=== PATIENT | male | born 1985 | race Caucasian/White ===

== ENCOUNTER 2018-04-09 10:41 | Emergency (ER) | payer SELFPAY ==
[2018-04-09 10:42] VITALS: BP 123/79; PULSE 87; RESP 14; TEMP 36.8; O2SAT 98; BMI 22.1
--- NOTE | 2018-04-09 10:58 | ED.DCSUM_ITS ---
- ER Visit Summary Date of Service: 04/09/18 Chief Complaint: [Rash] History of Present Illness: The patient is a 32 M [ presents to the emergency department with complaint of a rash that started yesterday evening. 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 Patient describes the rash as pruritic. Patient has a rash on his face and upper extremities as well as his abdomen and on his penis. Patient thinks he got the rash on his penis from touching the area while urinating. Denies recent illness. Patient does not want to file this under workman's comp. He denies any shortness of breath or difficulty breathing.] Physical Examination: [HEENT-PERRLA, EOMI. Cranial nerves II through XII grossly intact. TMs clear. Mucous membranes moist. No adenopathy. Cardiovascular-regular rate and rhythm without murmur or ectopy Lungs-clear to auscultation, chest wall stable without crepitus or subcu emphysema Abdomen-normoactive bowel sounds, soft, nontender, no rebound or rigidity, no peritoneal signs. Skin exam-patient does have an erythematous inflammatory rash around the right eye and right side of his face and nose. Patient also has similar rash on the volar aspect of his forearms as well as his abdomen. Similar type rash noted to the penis as well. Rash is pruritic. Extremities-intact ?4, normal range of motion, normal pulses, atraumatic] Test Results: [None indicated] Emergency Department Course and Treatment: [Patient was treated with prednisone 60 mill grams p.o. as well as Benadryl 25 mill grams p.o.] Treatment Plan: [Patient will be started on prednisone and will be referred to primary care physician for follow-up within next 5-7 days.] Disposition: [Discharged home in stable condition] Impression: [Contact dermatitis] This note was generated with [employer] dictation software. It may contain incorrect words, spelling, and punctuation that were not noted in review of the chart prior to signing ED Disposition - Plan for ED Patient: Chief Complaint: Rash Referrals: Care Physician,No Primary [Primary Care Provider] -
--- NOTE | 2018-04-09 10:58 | ED.DEP ---
ED Disposition - Plan for ED Patient: Chief Complaint: Rash Instructions: ED Dermatitis Contact Prescriptions: predniSONE tablet 20 mg PO BID #14 tab Referrals: Care Physician,No Primary [Primary Care Provider] - Berny Barraza III, MD [STAFF PHYSICIAN] -
[2018-04-09] MEDS: predniSONE 20 MG Tablet 60 MG PO (11:07)
[2018-04-09] MEDS: DiphenhydrAMINE 25 MG Capsule PO (11:07)
[2018-04-09 11:13] VITALS: PULSE 85; RESP 14; O2SAT 99
--- OUTSIDE RECORDS SUMMARY | 2018-07-13 09:53 | XMS RPT_ITS ---
:1985 Author Organization [facility] Care Team Providers Name Role Phone Primay Care Physicia, No Primary Care Unavailable Maris Lopez Attending Unavailable MAYRA SHELDON MD Attending Unavailable PHYSICIAN, NONE Primary Care Unavailable Elli Lorenzo Attending Unavailable No Family Physician given Primary Care Unavailable PROBLEMS PROBLEMS DATE TYPE CONDITION / ATTENDING STATUS SOURCE CODE 05/13/2018 Admitting Unknown / Elli Lorenzo Active [facility] Medical diagnosis UNK(Unknown) E [facility] Repository PROCEDURES PROCEDURES No Procedure Records FoundRESULTS RESULTS BMP Collected: 05/13/2018 Status: F Source: [facility] 7:20 AM [facility] REPOSITORY Order Comment: [place]: M TYPE CODE TESTS RESULT OUT OF RANGE REFERENCE UNITS LAB L500.06489 136-145 MMOL/L Normal NA 142 LAB L500.50215 3.5-5.1 MMOL/L Normal K 4.4 LAB L500.74767 98-107 MMOL/L High CL 111 LAB L500.97111 21-32 MMOL/L Normal CO2 25 LAB L500.70667 5-16 MMOL/L Normal AGAP 6 LAB L500.06873 70-100 MG/DL Normal GLU 95 Result Comment: 70-100- Normal Fasting; 100-125 Impaired Fasting; greater than 126 on more than one result- Diabetes. ADA guidelines. Results may be falsely elevated after the administration of Sulfapyridine. Results may be falsely depressed after the administration of Sulfasalazine. LAB L500.11089 7-26 MG/DL Normal BUN 18 LAB L500.57398 0.670-1.170 MG/DL Normal CREAT 0.884 Result Comment: Patients receiving either N-Acetylcysteine (NAC) or Metamizole prior to venipuncture, may have falsely depressed results. LAB L500.70348 15-24 Normal BUN/CREA 21 LAB L500.65975 8.5-10.1 MG/DL Low CALCIUM TOTAL 8.3 Performed By: #### L500.01187, L500.12017 #### [facility] [place] [address] GFR EST Collected: 05/13/2018 Status: F Source: [facility] 7:20 AM [facility] REPOSITORY Order Comment: [place]: TYPE CODE TESTS RESULT OUT OF RANGE REFERENCE UNITS LAB L500.50894 ML/MIN Normal IF non-AFR Greater than AMER 60 LAB L500.81305 ML/MIN Normal IF Greater than AMER 60 Performed By: #### L500.61587, L500.64194 #### [facility] [address] [place] [address] FLUOROSCOPY IN OR/PAIN Observed: 05/13/2018 Status: F Source: [facility] MGT 6:54 AM [facility] FLUOROSCOPY IN OR/PAIN MGT Ordering Physician: Elli Lorenzo MD 05/13/2018 8:30 AM FLUOROSCOPY FILMS DIGIT LEFT HAND Clinical Statement: Fracture FINDINGS: Six seconds fluoroscopy time was utilized by Dr. Lorenzo. Two C-arm images of the fifth digit left hand were obtained. IMPRESSION: Six seconds fluoroscopy time utilized by Dr. Lorenzo. ---- Electronic Signature on File ---- Signed By: Linda Rascon MD FACR [email or web address] Dictated: 05/13/2018 9:30 AM Signed: 05/13/2018 9:30 AM Reported By: LINDA RASCON M.D. Signed By: LINDA RASCON M.D. XR FINGER 5TH DIGIT Observed: 05/03/2018 Status: F Source: [facility] 3 VIEWS LEFT 3:17 PM [facility] REPOSITORY ORIGINAL XR FINGER 5TH DIGIT 3 VIEWS LEFT CLINICAL STATEMENT: pain. Crush injury. COMPARISON: None FINDINGS: There is an acute angulated fracture of the proximal diaphysis of the proximal phalanx LEFT 5th digit. There is 55 degrees dorsal angulation of the distal fracture fragment. No additional frac tures visualized. There is surrounding soft tissue swelling area IMPRESSION: Angulated fracture of LEFT 5th proximal phalanx as described above. I have personally reviewed the images of this examination and agree with the resident's findings and interpretation. Interpreted By: Mark Le MD Preliminary Report By: Mark Livingston DO Electronically Signed By: Mark Le MD Dictated Date: 05/03/2018 4:04:52 PM Prelim Date: 05/03/2018 4:06:05 PM Sign Date: 05/03/2018 4:19:36 PM DISCHARGE INSTRUCTION Observed: 04/09/2018 Status: F Source: [place] 11:00 AM [facility] REPOSITORY [facility] Medical Records Department [address] [place] [address] Discharge Instruction 04/09/18 1058 MR#: [id number] Acct: [id number] Name: DEA MERCADO Rep #: [id number] : 1985 32 From: Maris Lopez DO PCP: Care Physician, No Primary Status: PRE ER ED Disposition - Plan for ED Patient: Chief Complaint: Rash Instructions: ED Dermatitis Contact Prescriptions: predniSONE tablet 20 mg PO BID #14 tab Referrals: Care Physician,No Primary [Primary Care Provider] - Berny Barraza III, MD [STAFF PHYSICIAN] - What to do if you have Problems For any increased pain, shortness of breath, bleeding, nausea or vomiting, chest pain, or any unexpected problems, contact your Primary Care Provider. Call [facility] ([phone]) or report to the closest Emergency Room. Call 911 if necessary. 04/09/18 1100 <Electronically signed by Maris Lopez DO> Date Remus Ungur DO Cosigner Signature (If Indicated): Date CC: No Primary Care Physician EMERGENCY DEPARTMENT Observed: 04/09/2018 Status: F Source: [place] SUMMARY 10:58 AM [facility] REPOSITORY [facility] Medical Records Department [address] [place] [address] Emergency Department Summary 04/09/18 1055 MR#: [id number] Acct: [id number] Name: DEA MERCADO Rep #: [id number] : 1985 32 From: Maris Lopez DO PCP: Care Physician, No Primary Status: PRE ER - ER Visit Summary Date of Service: 04/09/18 Chief Complaint: [Rash] History of Present Illness: The patient is a 32 M [ presents to the emergency department with complaint of a rash that started yesterday evening. 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 Patient describes the rash as pruritic. Patient has a rash on his face and upper extremities as well as his abdomen and on his penis. Patient thinks he got the rash on his penis from touching the area while urinating. Denies recent illness. Patient does not want to file this under workman's comp. He denies any shortness of breath or difficulty breathing.] Physical Examination: [HEENT-PERRLA, EOMI. Cranial nerves II through XII grossly intact. TMs clear. Mucous membranes moist. No adenopathy. Cardiovascular-regular rate and rhythm without murmur or ectopy Lungs-clear to auscultation, chest wall stable without crepitus or subcu emphysema Abdomen-normoactive bowel sounds, soft, nontender, no rebound or rigidity, no peritoneal signs. Skin exam-patient does have an erythematous inflammatory rash around the right eye and right side of his face and nose. Patient also has similar rash on the volar aspect of his forearms as well as his abdomen. Similar type rash noted to the penis as well. Rash is pruritic. Extremities-intact 4, normal range of motion, normal pulses, atraumatic] Test Results: [None indicated] Emergency Department Course and Treatment: [Patient was treated with prednisone 60 mill grams p.o. as well as Benadryl 25 mill grams p.o.] Treatment Plan: [Patient will be started on prednisone and will be referred to primary care physician for follow-up within next 5-7 days.] Disposition: [Discharged home in stable condition] Impression: [Contact dermatitis] This note was generated with [employer] dictation software. It may contain incorrect words, spelling, and punctuation that were not noted in review of the chart prior to signing ED Disposition - Plan for ED Patient: Chief Complaint: Rash Referrals: Care Physician,No Primary [Primary Care Provider] - What to do if you have Problems For any increased pain, shortness of breath, bleeding, nausea or vomiting, chest pain, or any unexpected problems, contact your Primary Care Provider. Call [facility] ([phone]) or report to the closest Emergency Room. Call 911 if necessary. 04/09/18 1058 <Electronically signed by Maris Lopez DO> Date Maris Lopez DO Cosigner Signature (If Indicated): Date CC: No Primary Care Physician ALLERGIES ALLERGIES DATE TYPE / CODE NAME / CODE REACTION SEVERITY SOURCE 08/20/2015 Drug morphine/F00 Other Unknown [facility] Allergy/4160 [id number]([facility] 07584(SNOMED RM) Repository CT) ENCOUNTERS ENCOUNTERS ADMIT/DISCHARGE ACCOUNT NUMBER ADMITTING ENCOUNTER LOCATION SOURCE CLASS 05/13/2018 [id number] Inpatient [facility] Medical [facility] Repository ng:HMARY 05/03/2018/05/03/19 [id number] Emergency BBuilding:TAYE Swanson [address] [place] [address] Repository 04/09/2018/04/09/20 [id number] Emergency [place] Margarita [address] [place] [address] ding:ED Repository PAYERS PAYERS ENCOUNTER GUARANTOR PAYER SUBSCRIBER SOURCE 05/13/2018 [facility] [id number] [facility] [place], [place] Number: [id number]: [phone] [id number] [phone] (HP) Date:[id number] [address] [place] [address]SR: 05/03/2018 DEA Primary DEA [facility] PERKINSDOB: Insurance:[employer] JAYLENFLOB: [facility] [id number] INSCOPolicy Number: [id number] [facility] [id number] [address] [place] [address] Date:2018-04-26 - [place], [place] [address]Sof: [phone]: () Name:[phone] [place] [address] ()Tel: [phone]: [phone] 04/09/2018 SARITA Primary NOT [id number] Insurance:SELF PAY [place], [place] Number: Effective Repository [phone]: [phone]) Date:2018-04-09 [phone] ()
== END 2018-04-09 11:25 | disposition home or self-care (01) ==
PROVIDERS: Emergency Provider Emergency Medicine
DX: L25.9 Unspecified contact dermatitis, unspecified cause (principal); Z72.0 Tobacco use
CPT/HCPCS: 99283

== ENCOUNTER 2018-11-22 16:25 | Emergency (ER) | payer MEDICAID, SELFPAY ==
[2018-11-22 16:26] VITALS: BP 124/80; PULSE 96; RESP 15; TEMP 36.8; O2SAT 98; BMI 20.2
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
[2018-11-22] MEDS: oxyCODONE 5 MG Tablet PO ×2 (17:52→21:52)
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
[2018-11-22 18:30] VITALS: BP 122/74; PULSE 84; RESP 16; O2SAT 100
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
[2018-11-22] MEDS: HYDROmorphone 0.5 MG/0.5 ML SYRINGE IV (19:44)
[2018-11-22] MEDS: Ondansetron 4 MG/2 ML Vial IV (19:44)
[2018-11-22 19:47] VITALS: BP 146/88; PULSE 76; RESP 18; O2SAT 98
[2018-11-22 20:52] VITALS: BP 123/81; PULSE 66; RESP 18; O2SAT 98
--- NOTE | 2018-11-22 21:23 | ED.DEP ---
ED Disposition - Plan for ED Patient: Instructions: Rib Contusion Prescriptions: Oxycodone HCl/Acetaminophen [Percocet 5/325] 1 tablet PO Q6H PRN PRN 3 Days #12 tablet PRN Reason: Pain Referrals: Zbigniew Mccollum DO [STAFF PHYSICIAN] - Josh Golden MD [NON-STAFF] -
[2018-11-22 21:54] VITALS: BP 143/89; PULSE 62; RESP 17; O2SAT 100
== END 2018-11-22 21:55 | disposition home or self-care (01) ==
PROVIDERS: Emergency Provider Emergency Medicine
DX: S20.212A Contusion of left front wall of thorax, initial encounter (principal); R74.8 Abnormal levels of other serum enzymes; V03.10XA Pedestrian on foot injured in collision with car, pick-up truck or van in traffic accident, initial encounter; Y93.9 Activity, unspecified; Y92.9 Unspecified place or not applicable; Y99.9 Unspecified external cause status; Z72.0 Tobacco use
CPT/HCPCS: 71101; 71275; 85379; 96374; 96375; 99283; Q9967; A4216; J2405

== ENCOUNTER 2019-01-30 02:51 | Emergency (ER) | payer MEDICAID, SELFPAY ==
[2019-01-30 02:52] VITALS: BP 152/105; PULSE 97; RESP 15; TEMP 36.5; O2SAT 99; BMI 22.2
--- NOTE | 2019-01-30 03:57 | ED.RN ---
DR. QUIÑONEZ IN TO SEE PATIENT AT THIS TIME. PATIENT UPSET ABOUT THE TIME IT TOO TO SEE PATIENT AND THE CARE THAT HE WAS GOING TO RECEIVE. PATIENT ADVISED ORDERS WERE PLACED. PATIENT NO LONGER WANTS TO STAY AND WANTS TO GO TO A HOSPITAL THAT WILL TAKE CARE OF HIM. PATIENT AT THIS TIME WALKED OUT UNDER ON FREE WHILE WITH FRIENDS. PATIENT REFUSES TO ALLOW REGISTRATION TO SEE HIM.
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
== END 2019-01-30 04:01 | disposition home or self-care (01) ==
LOC: ED 03:58
PROVIDERS: Emergency Provider Emergency Medicine
DX: S00.03XA Contusion of scalp, initial encounter (principal); S50.01XA Contusion of right elbow, initial encounter; S40.211A Abrasion of right shoulder, initial encounter; S30.810A Abrasion of lower back and pelvis, initial encounter; Y04.0XXA Assault by unarmed brawl or fight, initial encounter; Y93.9 Activity, unspecified; Y92.9 Unspecified place or not applicable; Y99.9 Unspecified external cause status
CPT/HCPCS: 99285

== ENCOUNTER 2019-06-24 21:07 | Emergency (ER) | payer MEDICAID, SELFPAY ==
[2019-06-24 21:08] VITALS: BP 139/77; PULSE 99; RESP 18; TEMP 37.3; O2SAT 99; BMI 20.7
[2019-06-24] MEDS: Ondansetron 4 MG/2 ML Vial IV (21:53)
[2019-06-24] MEDS: 0.9% Normal Saline 1,000 ML 1000 ML IV (21:53)
[2019-06-24] MEDS: Ketorolac 30 MG/ML Syringe IV (21:53)
--- NOTE | 2019-06-24 22:00 | RAD_ITS ---
STUDY: X-RAY CHEST REASON FOR EXAM: Male, 33 years old. Cough and fever TECHNIQUE: PA and lateral views of the chest. COMPARISON: 2012 FINDINGS: The lungs are clear and expanded. There is no demonstrated pleural abnormality. Normal size heart. Normal mediastinum and juli. Normal visualized pulmonary arteries. Normal visualized aortic arch and descending thoracic aorta. Normal visualized thoracic spine. Normal visualized ribs, clavicles, and shoulders. There is no demonstrated abnormality of the visualized soft tissue structures of the upper abdomen. RAD/Chest PA and Lateral IMPRESSION: No acute pulmonary process Electronically Signed: Jorge Vásquez MD at 22:41 EST , Service support ,
[2019-06-24] MEDS: Albuterol 2.5 MG/3 ML VIAL.NEB. INHALATION (22:13)
[2019-06-24 22:15] VITALS: PULSE 102; RESP 18
[2019-06-24 22:29] LABS: Absolute Lymphocyte Count 0.97 X10^3/uL (0.83-4.51); Absolute Neutrophil Count 2.8 X10^3/uL (2.0-7.7); Basophil# 0.03 X10^3/uL; Basophil% 0.7 % (0-1); Hematocrit 39.1 % (40-54); Hemoglobin 13.4 g/dL (13.0-16.5); Lymphocyte # 0.97 X10^3/ul (4.0); Lymphocyte % 22.6 % (19-41); Mean Corp Hgb Conc 34.3 g/dL (32-36); Mean Corpuscular Hgb 29.3 pg (27.0-32.0); Mean Corpuscular Volume 85.6 fL (80-94); Mean Platelet Vol. 13.1 fl (6.2-12.0); Monocyte# 0.49 X10^3/uL; Monocyte% 11.4 % (0-10); NRBC Flagged by Analyzer 0 % (0-5); Neutrophil % 65.1 % (47-70); POSITIVE MORPHOLOGY YES; Platelet Count 109 K/mm3 (150-450); RBC Distribution Width CV 13.2 % (11.6-14.6); RBC Distribution Width SD 41.5 fl (35.1-43.9); Red Blood Count 4.57 M/mm3 (4.6-6.2); White Blood Count 4.3 K/mm3 (4.4-11.0)
[2019-06-24 22:34] LABS: Differential Indicated SCAN CRITERIA MET
[2019-06-24 22:45] LABS: ALB/GLOB Ratio 1.3 RATIO (0.9-2.4); AST(SGOT) 26 U/L (15-37); Alanine Aminotransfer ALT/SGPT 17 U/L (16-61); Alkaline Phosphatase 72 U/L (45-117); Anion Gap 7 (5-15); BUN 17 mg/dL (7-18); BUN/Creat Ratio 14.3 RATIO (10-20); Calcium,Total 8.7 mg/dL (8.5-10.1); Chloride 107 mmol/L (98-107); Creatinine, Serum 1.19 mg/dL (0.70-1.30); EST Glomerular Filtration Rate 75 mL/min (>60); Est Glom Filt Rate - Afr Amer 91 mL/min (>60); Estimated Creatinine Clearance 82.44 ml/min; Glucose 80 mg/dL (74-106); Potassium 3.7 mmol/L (3.5-5.1); Sodium Level 138 mmol/L (136-145)
--- NOTE | 2019-06-24 23:03 | ED.VISSUMM ---
- ER Visit Summary Date of Service: 06/24/19 Chief Complaint: Fever call History of Present Illness: The patient is a 33 M with no primary care physician. Reports she has fever and cough that began 3 days ago. Has had diffuse myalgias. Reports that he has been wheezing had mild shortness of breath. Does not have an inhaler he uses. Has been nauseated vomited 6 times. No blood in his emesis. Denies abdominal pain. Has had episodes of diarrhea approximately 3 times a day. No blood in stools or black tarry stools. Complains of a headache and stated 10 severity. Also complains of diffuse arthralgias. He did not get a flu shot this year. Physical Examination: Vitals: Stable. Afebrile. General: Well-nourished and well-developed. Head: Normocephalic atraumatic. Neck: Supple, no lymphadenopathy. No JVD. Nontender. Cardiovascular: Regular rate and rhythm. No murmurs. Respiratory: No respiratory distress. Clear to auscultation bilaterally. Abdominal: Soft, nontender, nondistended, normal bowel sounds. No guarding, rebound, or peritoneal signs. Back: Nontender. Extremities: Nontender, no edema. Skin: Normal color, no rash. Neurologic: Alert and oriented ?3. Cranial nerves II through XII are intact. Normal strength and sensation. Psych: Normal affect. Test Results: CBC shows a white count of 4.3 with hematocrit of 39.1. Chem-7 is normal. LFTs are normal. He is positive for influenza B. Clinical Impression(s) from Imaging Studies Chest X-Ray 06/24/19 22:00 IMPRESSION: No acute pulmonary process Electronically Signed: Jorge Vásquez MD at 22:41 EST , Service support , Emergency Department Course and Treatment: Patient had an IV placed. He was given a liter normal saline. He was given Zofran, Toradol IV. He was given albuterol aerosol. Prolonged discussion with him he does want to be placed on Tamiflu. He has a 5-day-old at home. Treatment Plan: Patient will be discharged with Tamiflu and an albuterol MDI. Instructed to follow-up the [facility] in 1 week if not improving. Return to the emergency department for any worsening symptoms. Disposition: To home in improved and stable condition. Impression: 1. Influenza B. This note was generated with [employer] dictation software. It may contain incorrect words, spelling, and punctuation that were not noted in review of the chart prior to signing ED Disposition - Plan for ED Patient: Disposition: Home or Assisted Living Instructions: INFLUENZA (Adult) Prescriptions: Oseltamivir Phosphate [Tamiflu] 75 mg PO BID #10 cap Prescription Printed Albuterol Inhaler [Ventolin Hfa] 2 puff INHALATION Q4H PRN PRN #1 inhaler PRN Reason: Wheezing Prescription Printed Ondansetron [Zofran Odt] 4 mg PO Q8H PRN PRN #10 tab PRN Reason: Nausea Prescription Printed Referrals: [facility] [NON-STAFF] - 1 Week if not improving
[2019-06-24 23:15] VITALS: BP 126/87; PULSE 87; RESP 16
[2019-06-24 23:21] LABS: Acanthocytes RARE; Differential Comment SCANNED; Platelet Estimate SLT DEC (ADEQ)
== END 2019-06-24 23:16 | disposition home or self-care (01) ==
LOC: ED 21:41
PROVIDERS: Emergency Provider Emergency Medicine
DX: J10.1 Influenza due to other identified influenza virus with other respiratory manifestations (principal); R11.2 Nausea with vomiting, unspecified; R19.7 Diarrhea, unspecified; Z72.0 Tobacco use
CPT/HCPCS: 71046; 80053; 85025; 87804; 94640; 96361; 96374; 96375; 99283; J7030; A4216; J2405

== ENCOUNTER 2020-01-24 23:54 | Emergency (ER) | payer MEDICAID, SELFPAY ==
[2020-01-24 23:55] VITALS: BP 155/84; PULSE 81; RESP 16; TEMP 36.1; O2SAT 96; BMI 21.6
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
--- NOTE | 2020-01-25 00:03 | ED.VIS.GEN ---
History of Present Illness Chief Complaint: Upper Extremity Injury Informant: Patient Narrative: Presents after punching a trash can yesterday. He has pain in his second knuckle. Notes it is swollen and tender. He is using ibuprofen but none recently. Hurts to move it. Current severity is mild to moderate. No previous fracture. He also was working on a car yesterday and suffered a superficial burn to his palm and wanted to get that checked out. Past Medical History - Allergies and Home Meds Allergies/Adverse Reactions: Allergies morphine Allergy (Verified 01/24/20 23:55) Other Primary Care Physician: Care Physician,No Primary [Primary Care Provider] - Prior records reviewed: Yes Past Medical History: None Surgical History: - - Reviewed Lives: With Family Smoking Status: Current every day smoker Alcohol: None Drugs: None Review of Systems General: Denies: Chills, Fever, Sweats Eyes: Denies: Visual changes - bilaterally, Diplopia ENT: Denies: Rhinorrhea, Sore throat Cardiovascular: Denies: Chest pain, Palpitations Respiratory: Denies: Dyspnea, Cough, Dyspnea on exertion Gastrointestinal: Denies: Abdominal pain, Nausea, Vomiting, Diarrhea, Melena, Hematochezia Genitourinary: Denies: Dysuria, Hematuria, Frequency Musculoskeletal: Reports: Extremity Pain - See HPI. Denies: Back pain Skin: Reports: Rash, Wounds Neurological: Denies: Headache, Weakness, Numbness Physical Exam Vital Signs/Narrative: Vital Signs Temp Pulse Resp BP Pulse Ox 01/24/20 23:55 97.0 F L 81 16 155/84 H 96 General: Well nourished, Well developed, No Acute Distress Head: Normocephalic, Atraumatic Eyes: Perrl, EOMI ENT: Moist mucous membranes, No rhinorrhea Neck: Supple, Nontender Cardiovascular: Regular rate, Regular rhythm, No murmurs Respiratory: No distress, CTA bilaterally, Chest nontender Abdomen: Soft, Nontender, Nondistended, Normal bowel sounds Back: Nontender, Normal Inspection Extremities: No edema, Tenderness - Tenderness in the second proximal metacarpal phalangeal joint. Mild soft tissue swelling decreased range of motion secondary to pain. Mild tenderness in the third proximal MCP as well. Skin: - - palm Of his right hand has a 1 x 1 cm superficial skin burn. Neurological: Alert, Oriented x3, Cranial nerves II-XII grossly intact, Normal Strength, Normal Sensation Psychological: Normal affect, Normal Mood Diagnostic/Tx/Re-eval - Medical Decision Making Given ibuprofen and ice pack. X-ray of the hand obtained. X-ray negative for acute fracture. Patient given Charlie wrap. At this time he just bruised his hand and has a superficial skin burn ED Disposition - Plan for ED Patient: Disposition: Home or Assisted Living Diagnosis: Contusion of hand, Burn of skin Instructions: ED HAND CONTUSION Referrals: Santos Acosta MD [STAFF PHYSICIAN] -
[2020-01-25] MEDS: Ibuprofen 600 MG Tablet PO (00:22)
[2020-01-25 01:01] VITALS: RESP 16
== END 2020-01-25 01:02 | disposition home or self-care (01) ==
LOC: ED 01-25 00:51
PROVIDERS: Emergency Provider Emergency Medicine
DX: S60.221A Contusion of right hand, initial encounter (principal); T23.051A Burn of unspecified degree of right palm, initial encounter; X08.8XXA Exposure to other specified smoke, fire and flames, initial encounter; W22.8XXA Striking against or struck by other objects, initial encounter; Y93.9 Activity, unspecified; Y92.9 Unspecified place or not applicable; Y99.9 Unspecified external cause status
CPT/HCPCS: 73130; 99283

== ENCOUNTER 2023-11-03 19:16 | Emergency (ER) | payer MEDICAID, SELFPAY ==
[2023-11-03 19:17] VITALS: BP 164/90; PULSE 88; RESP 18; TEMP 36.6; O2SAT 99; BMI 19.2
--- NOTE | 2023-11-03 19:20 | RAD_ITS ---
STUDY: X-RAY - RIGHT ELBOW REASON FOR EXAM: Male, 38 years old. Fall. Pain and swelling. TECHNIQUE: 3 view(s) of the elbow. COMPARISON: None. FINDINGS: Normal visualized humerus, radius and ulna. Normal radiocapitellar and ulnotrochlear articulations. There is posterior soft tissue swelling. There is no demonstrated fracture. RAD/Elbow min 3 Views IMPRESSION: Posterior soft tissue swelling. Electronically Signed: Trent Fortune MD at 20:11 EDT ,
== END 2023-11-03 20:27 | disposition left against medical advice (07) ==
LOC: ED 20:31
DX: S59.901A Unspecified injury of right elbow, initial encounter (principal); W01.0XXA Fall on same level from slipping, tripping and stumbling without subsequent striking against object, initial encounter; Z53.21 Procedure and treatment not carried out due to patient leaving prior to being seen by health care provider
CPT/HCPCS: 73080